=== PATIENT | male | born 1990 | race Caucasian/White ===

== ENCOUNTER 2021-08-05 00:10 | Emergency (ER) | payer OTHER ==
[~2021-08-05] VITALS: Ht 175.3 cm; Wt 71.0 kg
== END 2021-08-05 03:00 | disposition home or self-care (01) ==
LOC: ED 00:10
DX: M79.604 Pain in right leg (principal); Z88.0 Allergy status to penicillin
CPT/HCPCS: 93971; 99283-25

== ENCOUNTER 2021-08-07 12:21 | Emergency (ER) | payer OTHER ==
[~2021-08-07] VITALS: Ht 175.3 cm; Wt 71.4 kg
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
== END 2021-08-07 14:50 | disposition home or self-care (01) ==
LOC: ED 12:21
DX: R10.30 Lower abdominal pain, unspecified (principal); R19.4 Change in bowel habit; Z88.0 Allergy status to penicillin
CPT/HCPCS: 36415; 80053; 81001; 83690; 85025; 87493; 99284

== ENCOUNTER 2021-08-20 17:18 | Emergency (ER) | payer MEDICAID ==
[~2021-08-20] VITALS: Ht 175.3 cm; Wt 71.4 kg
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
--- NOTE | 2021-08-21 06:35 | EKG ---
[facility] [address] [place], [place] [address] Signed Sinus bradycardia Otherwise normal ECG No previous ECGs available Confirmed by BEVERLEY MIKE MD ([id number]) on 08/21/2021 6:34:53 AM Electronically Signed By: BEVERLEY MIKE MD 08/21/21 0635 PATIENT NAME: SIMON FRANK BRODIE Electrocardiogram DATE OF : 89 PHYSICIAN: BEVERLEY MIKE MD REPORT #: [id number] REPORT IS CONFIDENTIAL AND NOT TO BE RELEASED WITHOUT AUTHORIZATION
== END 2021-08-20 19:04 | disposition home or self-care (01) ==
LOC: ED 17:18
DX: R00.2 Palpitations (principal); R07.89 Other chest pain; Z88.0 Allergy status to penicillin
CPT/HCPCS: 36415; 71045; 80053; 83735; 84443; 84484; 93005; 93010; 99285-25

== ENCOUNTER 2021-09-01 22:42 | Emergency (ER) | payer MEDICAID ==
[~2021-09-01] VITALS: Ht 175.3 cm; Wt 70.0 kg
--- OUTSIDE RECORDS SUMMARY | 2021-09-01 22:56 | XMS ---
PreManage Notification: SIMON FRANK Security Chief Of Police Events 1 event(s) in the past 18 months Most recent security events: Elopement at [facility] 08/06/2021 15:00 Details: PATIENT LWBS CRITERIA MET - 6 ED Visits in 6 Months - [facility] - 2 Visits in 30 Days CARE PROVIDERS ANGI ACE[facility]ED[facility] Clinic/Center: Federally Qualified 05/18/2021-Current [facility] ([facility]) PHONE: [phone] Moraima has no Care Guidelines for this patient. [place] VISIT COUNT (12 MO.) 2 [place] [facility] NOTE: Visits indicate total known visits. ED/UCC VISIT TRACKING (12 MO.) 09/01/2021 22:42 CLAUDIA Uribe [place] TYPE: Emergency COMPLAINT: - CHEST PAIN, SOB 08/20/2021 17:18 CLAUDIA Uribe [place] TYPE: Emergency COMPLAINT: - CHEST TIGHTNESS DIAGNOSES: - Other chest pain - Palpitations - Allergy status to penicillin 08/07/2021 12:21 CLAUDIA Uribe [place] TYPE: Emergency [...] visits to display in this time frame [id number]
--- NOTE | 2021-09-03 11:43 | EKG ---
[facility] [address] [place] [address] Signed Normal sinus rhythm with sinus arrhythmia Normal ECG When compared with ECG of 20-AUG-2021 18:09, No significant change was found Confirmed by HÉCTOR BRANCH MD ([id number]) on 09/03/2021 11:42:59 AM Electronically Signed By: HÉCTOR BRANCH MD 09/03/21 1143 PATIENT NAME: SIMON FRANK Electrocardiogram DATE OF : [birth year] PHYSICIAN: HÉCTOR BRANCH MD REPORT #: [id number] REPORT IS CONFIDENTIAL AND NOT TO BE RELEASED WITHOUT AUTHORIZATION
== END 2021-09-01 22:56 | disposition left against medical advice (07) ==
LOC: ED 22:42
DX: Z53.21 Procedure and treatment not carried out due to patient leaving prior to being seen by health care provider (principal)
CPT/HCPCS: 93005; 93010

== ENCOUNTER 2021-09-19 18:12 | Emergency (ER) | payer MEDICAID ==
[~2021-09-19] VITALS: Ht 175.3 cm; Wt 69.8 kg
--- OUTSIDE RECORDS SUMMARY | 2021-09-19 18:20 | XMS ---
PreManage Notification: SIMON FRANK Security Director Corporate Compliance Events 2 event(s) in the past 18 months Most recent security events: Elopement at [facility] 09/01/2021 22:42 Details: PATIENT LWBS Elopement at [facility] 08/06/2021 15:00 Details: PATIENT LWBS CRITERIA MET - 6 ED Visits in 6 Months - [facility] - 2 Visits in 30 Days [facility]: Federally Qualified 05/18/2021-[facility] ([facility]) PHONE: [phone] Moraima has no Care Guidelines for this patient. [place] VISIT COUNT (12 MO.) 2 [place] H. 6 [facility]. TOTAL 8 NOTE: Visits indicate total known visits. ED/UCC VISIT TRACKING (12 MO.) 09/19/2021 18:14 CLAUDIA Uribe [place] TYPE: Emergency COMPLAINT: - YELLOW/ORANGE SPOTS ON FEET, PAIN UPPER EXTREMITIE 09/01/2021 22:42 CLAUDIA Uribe [place] TYPE: Emergency COMPLAINT: - CHEST PAIN, SOB- LWOBS DIAGNOSES: - Procedure and treatment not carried out due to patient leaving prior to being seen by health care provider 08/20/2021 17:18 CLAUDIA Uribe [place] TYPE: Emergency [...] visits to display in this time frame [email or web address]
[2021-09-19] MEDS ORDERED: ANTIFUNGAL TOP (19:51)
[2021-09-19] MEDS ORDERED: AQUA CARE71 GM TOP (19:51)
== END 2021-09-19 20:14 | disposition home or self-care (01) ==
LOC: ED 18:12
DX: R20.2 Paresthesia of skin (principal); L84 Corns and callosities; B35.3 Tinea pedis; Z88.0 Allergy status to penicillin
CPT/HCPCS: 99283

== ENCOUNTER 2021-11-27 12:21 | Emergency (ER) | payer MEDICAID ==
[~2021-11-27] VITALS: Ht 177.8 cm; Wt 73.6 kg
[~2021-11-27 12:21] MED LIST: ANTIFUNGAL TOP; AQUA CARE71 GM TOP
--- OUTSIDE RECORDS SUMMARY | 2021-11-27 12:28 | XMS ---
PreManage Notification: SIMON FRANK Security Package Sorter Events 2 event(s) in the past 18 months Most recent security events: Elopement at [facility] 09/01/2021 22:42 Details: PATIENT LWBS Elopement at [facility] 08/06/2021 15:00 Details: PATIENT LWBS CRITERIA MET - 6 ED Visits in 6 Months [facility] Federally Qualified 05/18/2021-[facility] ([facility]) PHONE: [phone] Moraima has no Care Guidelines for this patient. [place] VISIT COUNT (12 MO.) 2 [place] [facility]. 7 [facility]. TOTAL 9 NOTE: Visits indicate total known visits. ED/UCC VISIT TRACKING (12 MO.) 11/27/2021 12:22 CLAUDIA Uribe [place] TYPE: Emergency COMPLAINT: - SKIN PROBLEM 09/19/2021 18:14 CLAUDIA Uribe [place] TYPE: Emergency COMPLAINT: - YELLOW/ORANGE SPOTS ON FEET, PAIN UPPER EXTREMITIE DIAGNOSES: - Allergy status to penicillin - Corns and callosities - Tinea pedis - Anesthesia of skin - Paresthesia of skin 09/01/2021 22:42 CLAUDIA Urbie [place] TYPE: Emergency COMPLAINT: - CHEST PAIN, [...] visits to display in this time frame [id number]
== END 2021-11-27 13:26 | disposition home or self-care (01) ==
LOC: ED 12:21
DX: S50.862A Insect bite (nonvenomous) of left forearm, initial encounter (principal); Z88.0 Allergy status to penicillin; Z79.899 Other long term (current) drug therapy
CPT/HCPCS: 99282

== ENCOUNTER 2021-12-15 10:29 | Emergency (ER) | payer MEDICAID ==
[~2021-12-15] VITALS: Ht 177.8 cm; Wt 72.6 kg
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
[2021-12-15] MEDS ORDERED: ONDANSETRON ODT4 MG PO (12:31)
[2021-12-15] MEDS ORDERED: PROTONIX40 MG PO (12:31)
== END 2021-12-15 12:48 | disposition home or self-care (01) ==
LOC: ED 10:29
DX: K29.00 Acute gastritis without bleeding (principal); Z88.0 Allergy status to penicillin
CPT/HCPCS: 36415; 80053; 81001; 83690; 85025; 96374; 99284-25; J2405; J7030

== ENCOUNTER 2021-12-15 16:19 | Emergency (ER) | payer MEDICAID ==
[~2021-12-15] VITALS: Ht 177.8 cm; Wt 72.7 kg
[~2021-12-15 16:19] MED LIST changes: +ONDANSETRON ODT4 MG PO; +PROTONIX40 MG PO
--- OUTSIDE RECORDS SUMMARY | 2021-12-15 16:28 | XMS ---
PreManage Notification: SIMON FRANK Security Lawn Technician Events 2 event(s) in the past 18 months Most recent security events: Elopement at [facility] 09/01/2021 22:42 Details: PATIENT LWBS Elopement at [facility] 08/06/2021 15:00 Details: PATIENT LWBS CRITERIA MET - [facility] - 2 Visits in 30 Days - 6 ED Visits in 6 Months [facility] Federally Qualified 05/18/2021-[facility] ([facility]) PHONE: [phone] Moraima has no Care Guidelines for this patient. [place] VISIT COUNT (12 MO.) [address] [facility]. TOTAL 11 NOTE: Visits indicate total known visits. ED/UCC VISIT TRACKING (12 MO.) 12/15/2021 16:20 CLAUDIA Uribe [place] TYPE: Emergency COMPLAINT: - VOMITING 12/15/2021 10:29 CLAUDIA Uribe [place] TYPE: Emergency COMPLAINT: - ABD PAIN 11/27/2021 12:22 CLAUDIA Uribe [place] TYPE: Emergency COMPLAINT: - SKIN PROBLEM DIAGNOSES: - Allergy status to penicillin - Other long term care pharmacist (current) drug therapy - Insect bite (nonvenomous) [...] Allergy status to penicillin 08/07/2021 12:21 CLAUDIA rUibe [place] TYPE: Emergency COMPLAINT: - WEAKNESS DIAGNOSES: [...] visits to display in this time frame [id number]
== END 2021-12-15 22:48 | disposition home or self-care (01) ==
LOC: ED 16:19
DX: R11.2 Nausea with vomiting, unspecified (principal); R19.7 Diarrhea, unspecified; Z88.0 Allergy status to penicillin; Z79.899 Other long term (current) drug therapy
CPT/HCPCS: 36415; 80053; 81001; 82150; 83690; 85025; 96361; 96374; 99284-25; A9270; J2550; J7030

== ENCOUNTER 2022-01-01 14:06 | Emergency (ER) | payer MEDICAID ==
[~2022-01-01] VITALS: Ht 177.8 cm; Wt 72.1 kg
--- OUTSIDE RECORDS SUMMARY | 2022-01-01 14:14 | XMS ---
PreManage Notification: SIMON FRANK Security Food Expeditor Events 2 event(s) in the past 18 months Most recent security events: Elopement at [facility] 09/01/2021 22:42 Details: PATIENT LWBS Elopement at [facility] 08/06/2021 15:00 Details: PATIENT LWBS CRITERIA MET - 6 ED Visits in 6 Months - [facility] - 2 Visits in 30 Days CARE PROVIDERS [facility], [facility] Federally Qualified 05/18/2021-[facility] ([facility]) PHONE: [phone] Moraima has no Care Guidelines for this patient. [place] VISIT COUNT (12 MO.) [address] [facility]. TOTAL 12 NOTE: Visits indicate total known visits. ED/UCC VISIT TRACKING (12 MO.) 01/01/2022 14:07 CLAUDIA Uribe [place] TYPE: Emergency COMPLAINT: - R EYE BURNING, INNER R THIGH BURNING, ABD PAIN 12/15/2021 16:20 CLAUDIA Uribe [place] TYPE: Emergency COMPLAINT: - VOMITING DIAGNOSES: - Nausea with vomiting, unspecified - Other medical terminologist (current) drug therapy - Diarrhea, unspecified - Allergy status to penicillin 12/15/2021 10:29 CLAUDIA Uribe [place] TYPE: Emergency COMPLAINT: - ABD PAIN DIAGNOSES: - Allergy status to penicillin - Unspecified abdominal pain - Acute gastritis without bleeding 11/27/2021 12:22 CLAUDIA Uribe [place] TYPE: Emergency COMPLAINT: - SKIN PROBLEM DIAGNOSES: - Allergy status to penicillin - Other medical terminologist (current) drug therapy - Insect bite (nonvenomous) [...] visits to display in this time frame [id number]
== END 2022-01-01 17:11 | disposition left against medical advice (07) ==
LOC: ED 14:06
DX: R10.9 Unspecified abdominal pain (principal); H57.11 Ocular pain, right eye; Z88.0 Allergy status to penicillin; Z20.822 Contact with and (suspected) exposure to COVID-19; Z86.39 Personal history of other endocrine, nutritional and metabolic disease
CPT/HCPCS: 87502; C9803; U0003

== ENCOUNTER 2022-05-09 10:39 | Emergency (ER) | payer OTHER ==
[~2022-05-09] VITALS: Ht 177.8 cm; Wt 77.1 kg
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
== END 2022-05-09 15:03 | disposition home or self-care (01) ==
LOC: ED 10:39
DX: J06.9 Acute upper respiratory infection, unspecified (principal); R79.89 Other specified abnormal findings of blood chemistry; Z88.0 Allergy status to penicillin; Z20.822 Contact with and (suspected) exposure to COVID-19
CPT/HCPCS: 36415; 80053; 83690; 85025; 87502; 99283; C9803; U0003

== ENCOUNTER 2022-06-09 21:37 | Emergency (ER) | payer MEDICAID ==
[~2022-06-09] VITALS: Ht 177.8 cm; Wt 69.0 kg
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
[2022-06-10] MEDS ORDERED: PROTONIX40 MG PO (00:05)
[2022-06-10] MEDS ORDERED: ONDANSETRON ODT8 MG PO (00:05)
== END 2022-06-10 00:31 | disposition home or self-care (01) ==
LOC: ED 21:37
DX: R10.13 Epigastric pain (principal); Z88.0 Allergy status to penicillin
CPT/HCPCS: 36415; 76705; 80053; 81003; 83690; 85025; 96374; 96375; 99284-25; A9270; C9113; J2405; J7030

== ENCOUNTER → 2022-09-21 | Emergency (ER) | payer OTHER ==
[~2022-09-21] VITALS: Ht 175.3 cm; Wt 77.0 kg
[~2022-09-21] MED LIST changes: +LOMOTIL TABLET1 EACH PO; +ONDANSETRON ODT8 MG PO; +REGLAN10 MG PO
[2022-09-21 22:30] VITALS: BP 119/64
== END ==
LOC: ED 19:33
DX: R10.13 Epigastric pain (principal); R11.2 Nausea with vomiting, unspecified; R19.7 Diarrhea, unspecified; D72.829 Elevated white blood cell count, unspecified; Z88.0 Allergy status to penicillin; Z79.899 Other long term (current) drug therapy
CPT/HCPCS: 36415; 74177; 80048; 80053; 81003; 83690; 83735; 85025; A9270; J1885; J2405; J7030; J7040; Q9967

== ENCOUNTER 2022-11-07 11:36 | Emergency (ER) | payer OTHER ==
[~2022-11-07] VITALS: Ht 175.3 cm; Wt 77.6 kg
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
[2022-11-07 16:50] VITALS: BP 117/72
--- NOTE | 2022-11-07 18:31 | EKG ---
[facility] [address] [facility] [place] [address] Signed Normal sinus rhythm Normal ECG When compared with ECG of 01-SEP-2021 22:48, No significant change was found Confirmed by Saul Garcia MD () on 11/07/2022 6:31:47 PM Electronically Signed By: SAUL GARCIA MD 11/07/221830 PATIENT NAME: SIMON FRANK BRODIE Electrocardiogram DATE OF : 89 PHYSICIAN: SAUL GARCIA MD REPORT #: [id number] REPORT IS CONFIDENTIAL AND NOT TO BE RELEASED WITHOUT AUTHORIZATION
== END 2022-11-07 16:52 | disposition home or self-care (01) ==
LOC: ED 11:36
DX: K85.90 Acute pancreatitis without necrosis or infection, unspecified (principal); Z88.0 Allergy status to penicillin; Z79.899 Other long term (current) drug therapy; Z90.49 Acquired absence of other specified parts of digestive tract
CPT/HCPCS: 36415; 71045; 80053; 81001; 83690; 83735; 84484; 85025; 93005; 93010; 99284-25; J7030